=== PATIENT | female | born 1950 | race Caucasian/White ===

== ENCOUNTER 2017-07-28 13:09 | Emergency (ER) | payer MEDICARE ==
[2017-07-28 15:19] LABS: BASOPHILS % (AUTO) 0.8 % (0.0-5.0); EOSINOPHILS % (AUTO) 1.9 % (0.0-8.0); HEMATOCRIT 35.1 % (36-48); LYMPHOCYTES % (AUTO) 26.4 % (21.0-51.0); MEAN CORPUSCULAR HEMOGLOBIN 29.2 pg (27.0-33.0); MEAN CORPUSCULAR HGB CONC 33.7 g/dL (32.0-36.0); MEAN CORPUSCULAR VOLUME 86.6 fL (79-99); MONOCYTES % (AUTO) 8.5 % (3.0-13.0); NEUTROPHILS % (AUTO) 62.4 % (40.0-77.0); PLATELET COUNT (AUTO) 403 K/uL (130-400); RED BLOOD CELL COUNT(AUTO) 4.05 MIL/uL (4.00-5.50); RED CELL DISTRIBUTION WIDTH 12.5 % (11.0-15.5); WHITE BLOOD COUNT (AUTO) 8.9 K/uL (4.8-10.8)
[2017-07-28 15:35] LABS: POTASSIUM 3.9 mmol/L (3.5-5.1)
[2017-07-28 15:40] LABS: ALBUMIN 2.3 g/dL (3.5-5.0); BILIRUBIN,TOTAL 0.2 mg/dL (0.2-1.0); TOTAL PROTEIN, SERUM 6.8 g/dL (6.0-8.3)
== END 2017-07-28 16:49 | disposition home or self-care (01) ==
LOC: EDH 13:09
DX: J06.9 Acute upper respiratory infection, unspecified (principal); Z88.6 Allergy status to analgesic agent
CPT/HCPCS: 36415; 71046; 80053; 85025; 87804

== ENCOUNTER 2018-03-05 19:55 | Emergency (ER) | payer MEDICARE | END 2018-03-05 21:58 | disposition home or self-care (01) | LOC: EDH 19:55 | DX: S90.32XA Contusion of left foot, initial encounter (principal); W20.8XXA Other cause of strike by thrown, projected or falling object, initial encounter; Y93.89 Activity, other specified; Y92.512 Supermarket, store or market as the place of occurrence of the external cause; Y99.8 Other external cause status | CPT/HCPCS: 73630 ==

== ENCOUNTER 2023-05-03 11:21 | Emergency (ER) | payer MEDICARE ==
[~2023-05-03] VITALS: Ht 170.2 cm; Wt 59.0 kg
[2023-05-03 12:51] VITALS: BP 129/75; PULSE 73; RESP 20
[2023-05-03] MEDS ORDERED: HYDROCODONE/ACETAMINOPHEN 5/325 MG TAB PO ONE (13:00)
[2023-05-03] MEDS ORDERED: OXYC1TAB10 PO (14:20)
== END 2023-05-03 16:17 | disposition left against medical advice (07) ==
LOC: EDH 11:21
DX: M79.605 Pain in left leg (principal); M54.50 Low back pain, unspecified; Z88.5 Allergy status to narcotic agent
CPT/HCPCS: 72131; 73562; 73590